=== PATIENT | female | born 1950 | race Caucasian/White ===

== ENCOUNTER → 2023-12-11 12:00 | Outpatient (REF) | payer MEDICARE, SELFPAY ==
--- NOTE | 2023-12-11 15:41 | PN.DIAED04 ---
Education Record
- Education Record
Class Attended: Class 1
[facility] Class Series Code: [id number]
Instructor: Nurse Practitioner (RICK Brush)
Class Length (mins): 120
Post-Class 1 Test Score (%): 69
--- NOTE | 2023-12-11 15:42 | PN.DIAED14 ---
This is to notify you that your patient with diabetes, KATHI NEVES ( 1950), has enrolled in our diabetes self-management classes that are being held at [facility].
These classes will include an introduction to diabetes, diet, medication, exercise and prevention of complications. At the end of our class series, you will receive a report of your patient's participation and progress for your records.
Please contact me at the Diabetes Center, , if there is any particular information regarding your patient that might be helpful to me.
Sincerely,
--- NOTE | 2023-12-12 11:57 | PN.DIAED02 ---
Referral
DSME Class Series Code: [id number]
Referred For: Diabetes Self-Management Training
PHI Release Authorization Form Signed: Yes
Patient Problems:
Current Active Problems
Problem Status Onset
Type 2 diabetes mellitus with hyperglycemia
Demographic
(1) Type 2 diabetes mellitus with hyperglycemia
Status: Acute Code(s): E11.65 - Type 2 diabetes mellitus with hyperglycemia
Patient's primary language-: Tristanian
Education: High school/GED
Occupation: Retired
- Social
Primary Support Person: Self
Living Arrangements: Self
- Learning Methods
Preferred Method: Hands-on demonstration
Glycemic Control
- Blood Glucose Monitoring Assessment
Date: 09/12/23 (initial date Mila came into office)
Blood glucose monitoring at home: No (Provided with Contour Next EZ glucometer)
Monitor Brands: [employer] (Contour Next EZ)
Frequency: 2x per day
Time: fasting, after breakfast, after lunch, after dinner
- Hemoglobin A1c
Date: 08/18/23
A1C Percentage (%): 11.3
Medical History of Diabetes
Family Diabetes History: Mother, Sibling (brother)
Previous Diabetes Education: No
Previous visit with Dietitian: No
Complications/Comorbidity/Specialist: Kidney / bladder disease (loss of control-wears pads), Neuropathy (tingling/numbness in fingers)
Measures
- Anthropometrics
Height: 5 ft 6 in
Actual Weight: 261 lb 8 oz
- Blood Pressure / Pulse
Blood pressure: 138/58
- Diabetes Management
Medical Management for Diabetes: Complete physical exam (09/2023), Flu Vaccination (06/2023), Pneumonia vaccination ('about 2 yrs ago'), Other (Covid vaccine 2019)
Self-Care
- Tobacco Usage
Do you now, or have you ever smoked?: Quit more than 1 year ago (1980)
- Alcohol & Drugs Usage
Drinks Alcohol: Yes
Amount/day: Rarely
- Meals & Dining
Meals & Dining: Patient skips meals: No, Food Intolerance / Allergy: No, Cultural / Spiritism Dietary Needs: No
Primary Food Cotton Header: Self
Primary Records Management Associate: Self
Dining Out Frequency: 1-3x per week (2 times)
- Physical Activity
Physical Limitation: Yes (heel spur/plantar fascititis)
Patient participates in physical Activity: No
- Patient-Self Assessment
Diabetes Knowledge: Poor
Feelings About Diabetes: Acceptance
General Health: Fair
Importance of Health: Extremely
Stress Level: Medium
Depression Survey Score: 10
Care Plan
- Education Needs
Patient Education Needs: Diabetes disease process, Chronic complications, Acute complications, Medication, Monitoring, Physical activity, Psychosocial Adjustment, Nutritional management, Goal setting & problem solving
Recommended Diabetes Training Program based on assessment: Outpatient Diabetes Education Program
- Plan of Care
Plan of Care:
Mila recently diagnosed with T2DM. Went to an Urgent Care with BS>400, A1C 11.3, saw her PCP who RX/d Metformin 500 mg BID (Breakfast and dinner). She had called numerous other hospitals for education/information but there were no programs. She is
interested in attending the Oct 2023 classes. Say her today to provide with glucometer and ease some of her anxiety. Provided with and instructions given on Contour Next EZ glucometer. Good retention of steps with return demonstration, reulst 145
mg/dl pre lunch. Initially anxious to stick her finger, she was pleased that 'it didn't hurt'. Handout with testing pattern (2x/day) and expected results provided. She has been taking the Metformin with breakfast and dinner, no GI issues. Very
please with the result of her BS results, her breakfast included 1 egg, 2 slices melendrez, 1 slice rye bread and a mandarin orange. She has made some dietary changes and looking forward to getting her meal plan. Provided with handout on snack options.
Aware to consume protein with each meal and snack. She has made an eye appointment for October and encourage to make a dental appointment. Discussed benefit of exercise, states she may park farther when going to the store. Goals established
including walking for 15 minutes continuously 3-4 times per week (suggest in her condo). Phone number provided for follow up questions.
12/12/23- Mila was unable to attend the October classes. Recoded her for the November class (). Documentation from printed and reentered here, account for was cancelled.
--- NOTE | 2023-12-12 12:12 | PN.DIAED04 ---
Education Record
- Education Record
Class Attended: Class 1 (initial pre registration 09/12/2023 ( was hoping to attend , unable so now attending ))
DSME Class Series Code:
Instructor: Registered Nurse (Maryjo Lujan, RN, BSN, [facility])
Class Curriculum:
Outpatient Diabetes Education Program:
Initial Assessment (45 minutes)
Individualized assessment
Develop personal strategies to promote health and behavior change
Development of diabetes self-management support plan
Class Length (mins): 60
Pre-Program Knowledge: No knowledge
Pre-Test Score (%): 32
Goals
- Goal 1
Being Active: Exercise 15 minutes-3 times per week (goal is to walk for 15 minutes, 3-5 times per week)
Goals To Be Evaluated: Exercise 15 mins-3x/week
- Goal 2
Healthy Eating: Make better food choices
Goals To Be Evaluated: Make better food choices
- Goal 3
Monitoring: Take blood sugar in the prescribed pattern
Goals To Be Evaluated: Test BG-prescribed times
--- NOTE | 2023-12-13 16:26 | PN.DIAED06 ---
Meal Plans - Regular
- Meal Plan
Diabetic Meal Plan Name: 1600 calories
Breakfast - Total Carbohydrate (grams): 45
Breakfast - Starch Carbohydrate: 0
Breakfast - Fruit Carbohydrate: 0
Breakfast - Milk Carbohydrate: 0
Breakfast - Nonstarchy Vegetables: Yes
Breakfast - Meat/Protein: 1
Breakfast - Fat: 2
Morning Snack - Total Carbohydrate (grams): 15
Morning Snack - Starch Carbohydrate: 0
Morning Snack - Fruit Carbohydrate: 0
Morning Snack - Milk Carbohydrate: 0
Morning Snack - Nonstarchy Vegetables: Yes
Morning Snack - Meat/Protein: 0.5
Morning Snack - Fat: 0
Lunch - Total Carbohydrate (grams): 30
Lunch - Starch Carbohydrate: 0
Lunch - Fruit Carbohydrate: 0
Lunch - Milk Carbohydrate: 0
Lunch - Nonstarchy Vegetables: Yes
Lunch - Meat/Protein: 3
Lunch - Fat: 1
Afternoon Snack - Total Carbohydrate (grams): 15
Afternoon Snack - Starch Carbohydrate: 0
Afternoon Snack - Fruit Carbohydrate: 0
Afternoon Snack - Milk Carbohydrate: 0
Afternoon Snack - Nonstarchy Vegetables: Yes
Afternoon Snack - Meat/Protein: 0.5
Afternoon Snack - Fat: 0
Dinner - Total Carbohydrate (grams): 30
Dinner - Starch Carbohydrate: 0
Dinner - Fruit Carbohydrate: 0
Dinner - Milk Carbohydrate: 0
Dinner - Nonstarchy Vegetables: Yes
Dinner - Meat/Protein: 3
Dinner - Fat: 1
Evening Snack - Total Carbohydrate (grams): 15
Evening Snack - Starch Carbohydrate: 0
Evening Snack - Fruit Carbohydrate: 0
Evening Snack - Milk Carbohydrate: 0
Evening Snack - Nonstarchy Vegetables: Yes
Evening Snack - Meat/Protein: 0
Evening Snack - Fat: 0
== END ==
LOC: DES 12:00
PROVIDERS: ATTENDING PHYSICIAN Internal Medicine
DX: E11.65 Type 2 diabetes mellitus with hyperglycemia (principal)
CPT/HCPCS: 99078

== ENCOUNTER → 2023-12-25 12:00 | Outpatient (REF) | payer MEDICARE, SELFPAY ==
--- NOTE | 2024-01-01 10:53 | PN.DIAED04 ---
Education Record
- Education Record
Class Attended: Class 3
DSME Class Series Code: [id number]
Instructor: Registered Dietitian (Michelle Villaseñor, RD, LDN, CDE)
Class Length (mins): 120
Post-Class 2 & 3 Test Score (%): 69
== END ==
LOC: DES 12:00
PROVIDERS: ATTENDING PHYSICIAN Internal Medicine
DX: E11.65 Type 2 diabetes mellitus with hyperglycemia (principal)
CPT/HCPCS: 99078